=== PATIENT | female | born 1930 | race Hispanic/Latino ===

== ENCOUNTER 2018-02-05 18:56 | Inpatient (IN) | payer MEDICARE ==
[2018-02-05 19:06] VITALS: O2SAT 96
--- NOTE | 2018-02-05 19:43 | ED PDOC ---
HPI: Psych/Substance Abuse Time Seen by Provider: 02/05/18 19:40 Chief Complaint (Nursing): Psychiatric Evaluation Chief Complaint (Provider): PSYCH EVAL History Per: Family (87 Y/O FEMALE H/O DEMENTIA BROUGHT TO ED BY NIECE FOR EVALUATION OF PARANOIA/VISUAL HALLUCINATIONS. NO FEVERS/CHILLS/ETC. NOTED TO COMPLAIN OF RIGHT LEG PAIN ONGOING X FEW DAYS. NIECE CONCERNED PATIENT HAS TRIED TO LEAVE HOUSE DUE TO BEING UPSET ABOUT PEOPLE TALKING ABOUT HER AND WORRIED ABOUT OTHERS USING GUNS ON HER.) Past Medical History Reviewed: Historical Data, Nursing Documentation, Vital Signs Vital Signs: Last Vital Signs Temp 98.1 F 02/05/18 19:02 Pulse 81 02/05/18 19:02 Resp 16 02/05/18 19:02 BP 210/63 H 02/05/18 19:02 Pulse Ox 96 02/05/18 19:02 - Medical History Other PMH: PMD: DR. CHUA - Family History Family History: States: No Known Family Hx - Allergies Allergies/Adverse Reactions: Allergies Allergy/AdvReac Type Severity Reaction Status Date / Time No Known Allergies Allergy Verified 02/05/18 19:06 Review of Systems ROS Statement: Except As Marked, All Systems Reviewed And Found Negative Physical Exam - Reviewed Nursing Documentation Reviewed: Yes Vital Signs Reviewed: Yes - Physical Exam Appears: Positive for: Well, Non-toxic, No Acute Distress Head Exam: Positive for: ATRAUMATIC, NORMAL INSPECTION, NORMOCEPHALIC Skin: Positive for: Normal Color, Warm, DRY Eye Exam: Positive for: EOMI, Normal appearance, PERRL ENT: Positive for: Normal ENT Inspection Neck: Positive for: Normal, Painless ROM Cardiovascular/Chest: Positive for: Regular Rate, Rhythm Respiratory: Positive for: CNT, Normal Breath Sounds Gastrointestinal/Abdominal: Positive for: Normal Exam, Bowel Sounds, Soft Back: Positive for: Normal Inspection Extremity: Positive for: Normal ROM, Other (MINIMAL SCIATIC RAISE NOTED. PATIENT DESCRIBES PAIN BEHIND CALF AND THIGH) Neurologic/Psych: Positive for: Alert, Oriented - ECG O2 Sat by Pulse Oximetry: 96 Disposition - Clinical Impression Clinical Impression: Paranoia, Leg pain - Patient ED Disposition Is Patient to be Admitted: Transfer of Care - Disposition Disposition: Transfer of Care Disposition Time: 20:00 Condition: FAIR Patient Signed Over To: Priti Long Handoff Comments: LABWORK/HEAD CT/UA/CRISIS EVAL
--- NOTE | 2018-02-05 21:01 | ED PDOC ---
- Laboratory Results Result Diagrams: 02/05/18 21:36 02/05/18 21:36 - ECG O2 Sat by Pulse Oximetry: 96 (RA) Pulse Ox Interpretation: Normal Medical Decision Making Medical Decision Makin Case endorsed to tag writerToshia PA-C, due to shift change. Patient pending lab results, CT and U/S results, and further disposition. Pertinent details reviewed. 2054 Per CRISIS evaluation, patient is to be admitted with diagnosis of unspecified dementia with behavioral disturbances per Dr Tello. Patient pending medical clearance and lab/CT/US results. 2119 EKG reviewed: SR @ 89bpm (-) ST elevation, normal axis CT head reviewed, radiology report follows EXAM: CT Head Without Intravenous Contrast CLINICAL HISTORY: 87 years old, female; Signs and symptoms; Other: Psych eval; Additional info: Hallucinations TECHNIQUE: Axial computed tomography images of the head/brain without intravenous contrast. All CT scans at this facility use one or more dose reduction techniques, viz.: automated exposure control; ma/kV adjustment per patient size (including targeted exams where dose is matched to indication; i.e. head); or iterative reconstruction technique. Coronal and sagittal reformatted images were created and reviewed. COMPARISON: No relevant prior studies available. FINDINGS: Brain: Atrophy. Bilateral white matter hypoattenuation most consistent with chronic ischemic small vessel changes. Intracranial vascular calcification. No hemorrhage. No significant white matter disease. No edema. Ventricles: No hydrocephalus. Bones: Skull is intact. Sinuses: Minimal paranasal sinus mucosal thickening. No acute sinusitis. Mastoid air cells: No mastoid effusion. IMPRESSION: No CT evidence of acute intracranial abnormality. Please see details/findings as above. Thank you for allowing us to participate in the care of your patient. Dictated and Authenticated by: Cathy Davis MD 02/05/2018 9:00 PM Eastern Time ([place] & [place]) 2129 Patient pending lab results. U/S reviewed, radiology report follows EXAM: US Duplex Bilateral Lower Extremity Veins CLINICAL HISTORY: 87 years old, female; Pain; Leg, lower; Bilateral; Additional info: R/O dvt TECHNIQUE: Real-time duplex ultrasound scan of the bilateral lower extremity veins integrating B-mode twodimensional vascular structure, Doppler spectral analysis, color flow Doppler imaging and compression. COMPARISON: No relevant prior studies available. FINDINGS: Right deep veins: No DVT in the right common femoral, femoral, proximal deep femoral, popliteal or posterior tibial veins. The veins demonstrate normal color flow, are normally compressible, with normal phasic flow and/or augmentation response. Left deep veins: No DVT in the left common femoral, femoral, proximal deep femoral, popliteal or posterior tibial veins. The veins demonstrate normal color flow, are normally compressible, with normal phasic flow and/or augmentation response. Soft tissues: 2.7 x 1.7 x 1.3 cm focus of fluid in the right popliteal fossa, likely Bakers cyst. IMPRESSION: No evidence of deep venous thrombosis in the visualized veins of the bilateral lower extremities. 2.7 x 1.7 x 1.3 cm focus of fluid in the right popliteal fossa, likely Bakers cyst. Spoke with Lianne fibre technologist on 02/05/2018 9:23 PM EDT. Thank you for allowing us to participate in the care of your patient. Dictated and Authenticated by: Cathy Davis MD 02/05/2018 9:23 PM Eastern Time ([place] & [place]) 2245 Repeat BP: 188/67. Patient continues to deny any complaints related to elevated BP in ED including but not limited to headache, chest pain, palpitations, visual changes, weakness. On exam, patient remains AAOx3, in no acute distress. Lungs clear to auscultation, cardiac RRR, abdomen soft, non-tender, repeat neuro exam shows no focal findings. Labs reviewed, patient is medically stable for psychiatric admission. Arrangements made for admission. 2357 Repeat BP: 132/74 Repeat HR: 84 Disposition - Clinical Impression Clinical Impression: Paranoia, Leg pain, Dementia, unspecified, with behavioral disturbance - POA Present On Arrival: None - Disposition Disposition: Admitted as In-Patient Disposition Time: 01:50 Condition: FAIR Results - Lab Results Lab Results: 02/05/18 02/05/18 02/05/18 21:36 21:36 21:36 WBC 2.9 L RBC 3.33 L Hgb 11.3 L Hct 33.5 L MCV 100.4 H MCH 33.9 H MCHC 33.8 RDW 14.4 Plt Count 272 MPV 8.4 Neut % (Auto) 48.8 L Lymph % (Auto) 34.3 [place] % (Auto) 11.7 H Eos % (Auto) 2.4 Baso % (Auto) 2.8 H Neut # (Auto) 1.4 L Lymph # (Auto) 1.0 [place] # (Auto) 0.3 Eos # (Auto) 0.1 Baso # (Auto) 0.1 Sodium 142 Potassium 4.3 Chloride 103 Carbon Dioxide 26 Anion Gap 17 BUN 26 H Creatinine 0.8 Est GFR ( Amer) > 60 Est GFR (Non-Af Amer) > 60 Random Glucose 119 H Calcium 9.3 Total Bilirubin 0.3 AST 26 ALT 25 Alkaline Phosphatase 81 Troponin I 0.0320 Total Protein 6.8 Albumin 4.0 Globulin 2.8 Albumin/Globulin Ratio 1.4 Urine Color Yellow Urine Clarity Slighty-cloudy Urine pH 6.0 Ur Specific [place] 1.019 Urine Protein 100 Urine Glucose (UA) Neg Urine Ketones Negative Urine Blood Negative Urine Nitrate Negative Urine Bilirubin Negative Urine Urobilinogen 0.2-1.0 Ur Leukocyte Esterase Neg Urine RBC (Auto) 1 Urine Microscopic WBC 2 Ur Squamous Epith Cells 1 Urine Bacteria Rare
--- NOTE | 2018-02-05 21:24 | US ---
EXAM: US Duplex Bilateral Lower Extremity Veins CLINICAL HISTORY: 87 years old, female; Pain; Leg, lower; Bilateral; Additional info: R/O dvt TECHNIQUE: Real-time duplex ultrasound scan of the bilateral lower extremity veins integrating B-mode two-dimensional vascular structure, Doppler spectral analysis, color flow Doppler imaging and compression. COMPARISON: No relevant prior studies available. FINDINGS: Right deep veins: No DVT in the right common femoral, femoral, proximal deep femoral, popliteal or posterior tibial veins. The veins demonstrate normal color flow, are normally compressible, with normal phasic flow and/or augmentation response. Left deep veins: No DVT in the left common femoral, femoral, proximal deep femoral, popliteal or posterior tibial veins. The veins demonstrate normal color flow, are normally compressible, with normal phasic flow and/or augmentation response. Soft tissues: 2.7 x 1.7 x 1.3 cm focus of fluid in the right popliteal fossa, likely Bakers cyst. IMPRESSION: No evidence of deep venous thrombosis in the visualized veins of the bilateral lower extremities. 2.7 x 1.7 x 1.3 cm focus of fluid in the right popliteal fossa, likely Bakers cyst. Spoke with Lianne vascular ultrasound technologist on 02/05/2018 9:23 PM EDT.
[2018-02-05 21:49] LABS: SQUAMOUS EPITHIAL 1 /hpf (0-5); URINE BACTERIA RARE (<OCC); URINE BILIRUBIN NEGATIVE (NEGATIVE); URINE BLOOD NEGATIVE (NEGATIVE); URINE CLARITY SLIGHTY-CLOUDY (Clear); URINE COLOR YELLOW (YELLOW); URINE GLUCOSE (UA) NEG (Normal); URINE LEUKOCYTE ESTERASE NEG Leu/uL (Negative); URINE PROTEIN 100 mg/dL (NEGATIVE); URINE UROBILINOGEN 0.2-1.0 mg/dL (0.2-1.0)
[2018-02-05 22:05] LABS: ALB/GLOB RATIO 1.4 (1.0-2.1); ALT/SGPT 25 U/L (9-52); AST/SGOT 26 U/L (14-36); BLOOD UREA NITROGEN 26 mg/dl (7-17); CALCIUM 9.3 mg/dL (8.4-10.2); GFR AFRICAN-AMERICAN > 60; GFR NON-AFRICAN AMERICAN > 60
[2018-02-05 22:33] LABS: BASO # 0.1 K/uL (0.0-0.2); BASO % 2.8 % (0.0-2.0); EOS # 0.1 K/uL (0.0-0.7); EOS % 2.4 % (0.0-4.0); HEMOGLOBIN 11.3 g/dL (12.0-16.0); LYMPH % 34.3 % (20.0-40.0); MEAN CELL VOLUME 100.4 fl (81.0-99.0); MEAN CORPUSCULAR HEMOGLOBIN 33.9 pg (27.0-31.0); MEAN CORPUSCULAR HGB CONC 33.8 g/dL (33.0-37.0); MEAN PLATELET VOLUME 8.4 fl (7.2-11.7); MONO # 0.3 K/uL (0.0-0.8); MONO % 11.7 % (0.0-10.0); NEUT # 1.4 K/uL (1.8-7.0); NEUT % 48.8 % (50.0-75.0); NRBC % 0.2 % (0.0-0.0); RBC 3.33 Mil/uL (3.80-5.20); RED CELL DISTRIBUTION WIDTH 14.4 % (11.5-14.5); WHITE BLOOD COUNT 2.9 K/uL (4.8-10.8)
[2018-02-06] MEDS ORDERED: Magnesium Hydroxide Susp 30 ml UD PO PRN (01:55)
[2018-02-06] MEDS ORDERED: Bismuth Subsalicylate 262 mg/15 ml Sus (240 ml) PO PRN (01:55)
[2018-02-06] MEDS ORDERED: Alum-Mag Hydrox-Simethicone Susp (30 mL) PO PRN (01:55)
--- NOTE | 2018-02-06 02:24 | PCM.BM ---
<Amanda Villanueva - Last Filed: 02/06/18 02:22> Treatment Plan Problems - Problems identified on initial assessmt Psychosis Date Initiated: 02/06/18 Time Initiated: 02:22 Assessment reference: NA Status: Active Treatment assets and liabiliti Patient Assests: cooperative, good support system, negotiates basic needs Patient Liabilities: imparied memory - Milieu Protocol Maintain good personal hygiene: daily Encourage regular showers, daily Remind patient to perform daily oral care, other Assist patient to perform ADL's (prn) Maintain personal safety: every shift Educate patient to report safety concerns to staff, every shift Monitor environment for contraband/sharps Medication safety: Monitor for expected outcome, potential side effects: every shift, Assess barriers to learning: every shift, Assess readiness for medication education: every shift <Brenda Stroud - Last Filed: 02/06/18 08:43> - Diagnosis (1) Dementia, unspecified, with behavioral disturbance Status: Acute Interventions: Psychoeducation, Medication Management, Individual and group therapy 02/06/18 08:43 <Pearl Urbina - Last Filed: 02/06/18 13:24> Family Contact Family involvement: Family/SO is involved Family contact: Patient agrees to contact, Family has been contacted by patient , Telephone contact initiated by staff, Family contacted unit to give information Family contact name: Norberto phan Family contacted how many times per week?: 2 Family contact comment: [phone]. Please refer to SW progress note dated for information - Goals for Treatment Patient goals for treatment: Pt to be encouraged to attend activity and clinical groups 3-5x per week to decrease symptoms of paranoia, delusions and employ reality testing. Pt to be encouraged to participate in group milieu to develop coping skills to reduce psychiatric hospitalizations and further decompensation. Coordinate discharge resources needs by providing referral for psychiatric treatment follow up in the community. Discharge/Continuing Care - Education Needs Education Needs: Family Medication, Family Diagnosis/Disease Process, Family Coping Skills, Family Placement options, Family Community resources, Family Activities of Daily Living, Family Uses of Medical Equipment, Family Health Practices/Safety, Family Personal Hygiene/Grooming, Family Aftercare Safety Plan - Discharge Discharge Criteria: Tolerates medication w/o severe side effects, Free of paranoid thoughts, Free of agitation, Normal sleep pattern, Ability to care for self, Reduction of target symptoms Discharge to:: Home, With Family - Additional Comments 02/06/18 13:23 Pt seen and discussed in team meeting. Reason for admission reviewed and discussed. Pt's social and medical issues reviewed. Pt's medications reviewed. tx plan reviewed. SW to follow up with family for collateral information. Pt unable to provide any information due to cognitive impairment. - Treatment Team Participation Discussed with Family/SO: No Was Patient/Family/SO present at Treatment Team Meeting: Yes
[2018-02-06 06:40] LABS: IRON 86 ug/dL (37-170)
[2018-02-06 06:42] LABS: HDL CHOLESTEROL 54 MG/DL (30-70)
[2018-02-06 06:44] LABS: HEMOGLOBIN 11.2 g/dL (12.0-16.0); MEAN CORPUSCULAR HEMOGLOBIN 34.6 pg (27.0-31.0); MEAN CORPUSCULAR HGB CONC 34.6 g/dL (33.0-37.0); RBC 3.25 Mil/uL (3.80-5.20); RED CELL DISTRIBUTION WIDTH 14.2 % (11.5-14.5); WHITE BLOOD COUNT 2.6 K/uL (4.8-10.8)
[2018-02-06 06:53] LABS: % IRON SATURATION 33 % (20-55); TOTAL IRON BINDING CAPACITY 264 ug/dL (250-450)
[2018-02-06 06:54] LABS: LDL CHOLESTEROL 120 mg/dL (0-129)
[2018-02-06 07:00] LABS: T4 8.75 ug/dl (5.5-11.0)
--- NOTE | 2018-02-06 08:54 | PCM.PSYCH ---
Initial Psychiatric Evaluation - Initial Psychiatric Evaluation Chief Complaint (in patient's own words): "I'm okay." Patient's Reaction to Hospitalization: HPI: 87 yo female w/ h/o dementia, brought into [facility] ED by niece, due to worsening bizarre behavior and paranoia. Patient is unable to give any history. She is A + O x 1. She denies mood disturbance, AH/VH/SI/HI. She has poor insight into the severity of her dementia. She reports good appetite and sleep. She is not able to care for herself due to her chronic dementia. PMHx: HTN, Glaucoma SHx: Lives w/ her niece, no drugs/etoh/drugs, unemployed. ALL: NKDA Current Medications: Active Medications Generic Name Dose Route Start Last Admin Trade Name Freq PRN Reason Stop Dose Admin Acetaminophen 650 mg 02/06/18 01:55 Tylenol 325mg Tab PO Q4 PRN Pain, moderate (4-7) Al Hydrox/Mg Hydrox/Simethicone 30 ml 02/06/18 01:55 Maalox Plus 30 Ml PO Q4 PRN Dyspepsia Bismuth Subsalicylate 524 mg 02/06/18 01:55 Pepto-Bismol PO Q4 PRN Diarrhea Lorazepam 0.5 mg 02/06/18 01:55 Ativan PO 02/20/18 01:56 HS PRN Insomnia Lorazepam 0.5 mg 02/06/18 01:55 Ativan PO 02/20/18 01:56 Q6 PRN Anixety/Agitation Magnesium Hydroxide 30 ml 02/06/18 01:55 Milk Of Magnesia PO HS PRN Constipation Memantine 10 mg 02/06/18 09:00 Namenda PO DAILY LUCERO Past Psychiatric History - Past Psychiatric History Pertinent Medical Hx (Current Medical&Sleep Prob, Allergies): Allergies Allergy/AdvReac Type Severity Reaction Status Date / Time No Known Allergies Allergy Verified 02/05/18 19:06 Memantine [Namenda] 10 mg PO DAILY 02/06/18 Sertraline [Zoloft] 50 mg PO DAILY 02/06/18 Timolol 0.25% Ophth [Timoptic 0.25% Ophth Soln] 1 drop OU BID 02/06/18 amLODIPine [Norvasc] 2.5 mg PO DAILY 02/06/18 Review of Systems - Psychiatric Psychiatric: As Per HPI, Behavioral Changes, Memory Loss Mental Status Examination - Personal Presentation Personal Presentation: Looks stated age - Affect Affect: Broad - Motor Activity Motor Activity: Calm - Reliability in Providing Information Reliability in Providing Information: Poor, due to cognitve impairment - Speech Speech: Disorganized, Irrelevant - Mood Mood: Neutral - Formal Thought Process Formal Thought Process: Loosening of associations - Hallucinations/Delusions Additional comments: Denies AH/VH/paranoia/delusions - Obsessions/Compulsions Obsessions: No Compulsions: No - Cognitive Functions Orientation: Person Sensorium: Alert Attention/Concentration: Easily distracted Estimate of Intelligence: Average Judgement: Imparied, as evidence by: Poor judgement, Imparied, as evidence by: Lack of insight into illness Memory: Recent impaired, as evidence by: Inability to recall events of the day, Recent imparied as evidence by:Inability to complete 3/3 object recall, Remote impaired as evidenced by: Inability to recall sig life events, Remote impaired as evidenced by: Inability to recall historical events - Risk Risk: Diminished functioning - Strength & Assets Inventory Strength & Assets Inventory: Family support - Limitations Limitations: Decreased memory, recent DSM 5 DX - DSM 5 DSM 5 Diagnosis: Dementia with behavioral disturbances - Recommended/Plan of Treatment Treatment Recommendations and Plan of Treatment: Dementia with behavioral disturbances -Admit to geriatric psychiatry unit -Obtain collateral history -Medicine consult -Individual and group therapy -Stop Zoloft, patient is not exhibiting any mood disturbances -Increase Namenda -Start Seroquel -Psychology consult -Disposition planning Projected ELOS: 4-7 days Discharge Plan and Discharge Criteria: Discharge when patient is psychiatrically stable - Smoking Cessation Smoking Cessation Initiated: No Reason for not providing: Not indicated
--- NOTE | 2018-02-06 11:28 | CP.PCM.CON ---
History of Present Illness - History of Present Illness History of Present Illness: Pt is an 87 year old female admitted to [facility] and referred to the communications writer for evaluation. On the DRS, pt scored an overall score of 90>. Pt scored in the Deficient Range on all tasks. Pt scored in the Deficient Range on Attention , Construction, Memory, Initiation, and Conceptualization measures. Pt's verbal processing and organization were very impaired on evaluation. Overall 90 Attention 22 Construction 3 Memory 10 Conceptualization 29 Initiation 21 Significant cognitive deficits evident. Past Patient History - Past Social History Smoking Status: Never Smoked - CARDIAC Hx Cardiac Disorders: Yes Hx Hypertension: Yes - NEUROLOGICAL HX Cerebrovascular Accident: No Hx Dementia: Yes Hx Seizures: No - HEMATOLOGICAL/ONCOLOGICAL Hx Cancer: No Hx Human Immunodeficiency Virus (HIV): No - MUSCULOSKELETAL/RHEUMATOLOGICAL Hx Falls: Yes Hx Unsteady Gait: Yes - GENITOURINARY/GYNECOLOGICAL Hx Sexually Transmitted Disorders: No - PSYCHIATRIC Hx Substance Use: No - SURGICAL HISTORY Hx Hysterectomy: Yes - ANESTHESIA Hx Anesthesia: No Meds Allergies/Adverse Reactions: Allergies Allergy/AdvReac Type Severity Reaction Status Date / Time No Known Allergies Allergy Verified 02/05/18 19:06 - Medications Medications: Current Medications Acetaminophen (Tylenol 325mg Tab) 650 mg PO Q4 PRN PRN Reason: Pain, moderate (4-7) Al Hydrox/Mg Hydrox/Simethicone (Maalox Plus 30 Ml) 30 ml PO Q4 PRN PRN Reason: Dyspepsia Bismuth Subsalicylate (Pepto-Bismol) 524 mg PO Q4 PRN PRN Reason: Diarrhea Lorazepam (Ativan) 0.5 mg PO HS PRN PRN Reason: Insomnia Stop: 02/20/18 01:56 Lorazepam (Ativan) 0.5 mg PO Q6 PRN PRN Reason: Anixety/Agitation Stop: 02/20/18 01:56 Magnesium Hydroxide (Milk Of Magnesia) 30 ml PO HS PRN PRN Reason: Constipation Memantine (Namenda) 10 mg PO DAILY LUCERO Last Admin: 02/06/18 10:50 Dose: 10 mg Results - Vital Signs Recent Vital Signs: Last Vital Signs Temp 97.6 F 02/06/18 06:00 Pulse 82 02/06/18 06:00 Resp 18 02/06/18 06:00 BP 149/57 L 02/06/18 06:00 Pulse Ox 96 03/30/18 02:17 - Labs Result Diagrams: 02/06/18 06:23 02/05/18 21:36 Labs: Laboratory Results - last 24 hr 02/05/18 02/05/18 02/05/18 21:36 21:36 21:36 WBC 2.9 L RBC 3.33 L Hgb 11.3 L Hct 33.5 L MCV 100.4 H MCH 33.9 H MCHC 33.8 RDW 14.4 Plt Count 272 MPV 8.4 Neut % (Auto) 48.8 L Lymph % (Auto) 34.3 [place] % (Auto) 11.7 H Eos % (Auto) 2.4 Baso % (Auto) 2.8 H Neut # (Auto) 1.4 L Lymph # (Auto) 1.0 [place] # (Auto) 0.3 Eos # (Auto) 0.1 Baso # (Auto) 0.1 Sodium 142 Potassium 4.3 Chloride 103 Carbon Dioxide 26 Anion Gap 17 BUN 26 H Creatinine 0.8 Est GFR ( Amer) > 60 Est GFR (Non-Af Amer) > 60 Random Glucose 119 H Calcium 9.3 Iron TIBC % Saturation Ferritin Total Bilirubin 0.3 AST 26 ALT 25 Alkaline Phosphatase 81 Troponin I 0.0320 Total Protein 6.8 Albumin 4.0 Globulin 2.8 Albumin/Globulin Ratio 1.4 Triglycerides Cholesterol LDL Cholesterol Direct HDL Cholesterol Vitamin B12 Free T4 Thyroxine (T4) TSH 3rd Generation Urine Color Yellow Urine Clarity Slighty-cloudy Urine pH 6.0 Ur Specific [place] 1.019 Urine Protein 100 Urine Glucose (UA) Neg Urine Ketones Negative Urine Blood Negative Urine Nitrate Negative Urine Bilirubin Negative Urine Urobilinogen 0.2-1.0 Ur Leukocyte Esterase Neg Urine RBC (Auto) 1 Urine Microscopic WBC 2 Ur Squamous Epith Cells 1 Urine Bacteria Rare 02/06/18 02/06/18 02/06/18 06:23 06:23 06:23 WBC RBC Hgb Hct MCV MCH MCHC RDW Plt Count MPV Neut % (Auto) Lymph % (Auto) [place] % (Auto) Eos % (Auto) Baso % (Auto) Neut # (Auto) Lymph # (Auto) [place] # (Auto) Eos # (Auto) Baso # (Auto) Sodium Potassium Chloride Carbon Dioxide Anion Gap BUN Creatinine Est GFR ( Amer) Est GFR (Non-Af Amer) Random Glucose Calcium Iron 86 TIBC 264 % Saturation 33 Ferritin 645.0 H Total Bilirubin AST ALT Alkaline Phosphatase Troponin I Total Protein Albumin Globulin Albumin/Globulin Ratio Triglycerides 51 Cholesterol 190 LDL Cholesterol Direct 120 HDL Cholesterol 54 Vitamin B12 469 Free T4 1.13 Thyroxine (T4) 8.75 TSH 3rd Generation 0.67 Urine Color Urine Clarity Urine pH Ur Specific [place] Urine Protein Urine Glucose (UA) Urine Ketones Urine Blood Urine Nitrate Urine Bilirubin Urine Urobilinogen Ur Leukocyte Esterase Urine RBC (Auto) Urine Microscopic WBC Ur Squamous Epith Cells Urine Bacteria 02/06/18 06:23 WBC 2.6 L RBC 3.25 L Hgb 11.2 L Hct 32.5 L MCV 100.0 H MCH 34.6 H MCHC 34.6 RDW 14.2 Plt Count 257 MPV Neut % (Auto) Lymph % (Auto) [place] % (Auto) Eos % (Auto) Baso % (Auto) Neut # (Auto) Lymph # (Auto) [place] # (Auto) Eos # (Auto) Baso # (Auto) Sodium Potassium Chloride Carbon Dioxide Anion Gap BUN Creatinine Est GFR ( Amer) Est GFR (Non-Af Amer) Random Glucose Calcium Iron TIBC % Saturation Ferritin Total Bilirubin AST ALT Alkaline Phosphatase Troponin I Total Protein Albumin Globulin Albumin/Globulin Ratio Triglycerides Cholesterol LDL Cholesterol Direct HDL Cholesterol Vitamin B12 Free T4 Thyroxine (T4) TSH 3rd Generation Urine Color Urine Clarity Urine pH Ur Specific [place] Urine Protein Urine Glucose (UA) Urine Ketones Urine Blood Urine Nitrate Urine Bilirubin Urine Urobilinogen Ur Leukocyte Esterase Urine RBC (Auto) Urine Microscopic WBC Ur Squamous Epith Cells Urine Bacteria
--- NOTE | 2018-02-06 12:36 | CP.PCM.CON ---
History of Present Illness - History of Present Illness History of Present Illness: Reason for Consult: Per hospital protocol HPI: 87 year old female with a past medical history of severe dementia, hypertension, glaucoma, admitted to geropsychiatric for worsening bizarre behavior and paranoia. Patient is a poor historian, unable to elicit any history. Does not appear to be in any acute distress, hemodynamically stable. ROS: Per HPI, all other systems reviewed and neg Past Patient History - Past Social History Smoking Status: Never Smoked - CARDIAC Hx Cardiac Disorders: Yes Hx Hypertension: Yes - NEUROLOGICAL HX Cerebrovascular Accident: No Hx Dementia: Yes Hx Seizures: No - HEMATOLOGICAL/ONCOLOGICAL Hx Cancer: No Hx Human Immunodeficiency Virus (HIV): No - MUSCULOSKELETAL/RHEUMATOLOGICAL Hx Falls: Yes Hx Unsteady Gait: Yes - GENITOURINARY/GYNECOLOGICAL Hx Sexually Transmitted Disorders: No - PSYCHIATRIC Hx Substance Use: No - SURGICAL HISTORY Hx Hysterectomy: Yes - ANESTHESIA Hx Anesthesia: No Meds Allergies/Adverse Reactions: Allergies Allergy/AdvReac Type Severity Reaction Status Date / Time No Known Allergies Allergy Verified 02/05/18 19:06 - Medications Medications: Current Medications Acetaminophen (Tylenol 325mg Tab) 650 mg PO Q4 PRN PRN Reason: Pain, moderate (4-7) Al Hydrox/Mg Hydrox/Simethicone (Maalox Plus 30 Ml) 30 ml PO Q4 PRN PRN Reason: Dyspepsia Bismuth Subsalicylate (Pepto-Bismol) 524 mg PO Q4 PRN PRN Reason: Diarrhea Lorazepam (Ativan) 0.5 mg PO HS PRN PRN Reason: Insomnia Stop: 02/20/18 01:56 Lorazepam (Ativan) 0.5 mg PO Q6 PRN PRN Reason: Anixety/Agitation Stop: 02/20/18 01:56 Magnesium Hydroxide (Milk Of Magnesia) 30 ml PO HS PRN PRN Reason: Constipation Memantine (Namenda) 10 mg PO BID LUCERO Quetiapine Fumarate (Seroquel) 25 mg PO Q12 LUCERO Physical Exam - Constitutional Additional comments: Vitals Reviewed GEN: awake, alert, HEENT: NCAT, PERRL, EOMI HEART: RRR, +S1S2, NO MRG LUNG: CTAB, NO WRR ABD: soft, NT, ND, No HSM, No masses EXT: normal pedal pulses, normal capillary refill NEURO: awake, alert, no focal deficits SKIN: warm, dry Results - Vital Signs Recent Vital Signs: Last Vital Signs Temp 97.6 F 02/06/18 06:00 Pulse 82 02/06/18 06:00 Resp 18 02/06/18 06:00 BP 149/57 L 02/06/18 06:00 Pulse Ox 96 02/06/18 02:17 - Labs Result Diagrams: 02/06/18 06:23 02/05/18 21:36 Labs: Laboratory Results - last 24 hr 02/05/18 02/05/18 02/05/18 21:36 21:36 21:36 WBC 2.9 L RBC 3.33 L Hgb 11.3 L Hct 33.5 L MCV 100.4 H MCH 33.9 H MCHC 33.8 RDW 14.4 Plt Count 272 MPV 8.4 Neut % (Auto) 48.8 L Lymph % (Auto) 34.3 [place] % (Auto) 11.7 H Eos % (Auto) 2.4 Baso % (Auto) 2.8 H Neut # (Auto) 1.4 L Lymph # (Auto) 1.0 [place] # (Auto) 0.3 Eos # (Auto) 0.1 Baso # (Auto) 0.1 Sodium 142 Potassium 4.3 Chloride 103 Carbon Dioxide 26 Anion Gap 17 BUN 26 H Creatinine 0.8 Est GFR ( Amer) > 60 Est GFR (Non-Af Amer) > 60 Random Glucose 119 H Hemoglobin A1c Calcium 9.3 Iron TIBC % Saturation Ferritin Total Bilirubin 0.3 AST 26 ALT 25 Alkaline Phosphatase 81 Troponin I 0.0320 Total Protein 6.8 Albumin 4.0 Globulin 2.8 Albumin/Globulin Ratio 1.4 Triglycerides Cholesterol LDL Cholesterol Direct HDL Cholesterol Vitamin B12 Free T4 Thyroxine (T4) TSH 3rd Generation Urine Color Yellow Urine Clarity Slighty-cloudy Urine pH 6.0 Ur Specific Range 1.019 Urine Protein 100 Urine Glucose (UA) Neg Urine Ketones Negative Urine Blood Negative Urine Nitrate Negative Urine Bilirubin Negative Urine Urobilinogen 0.2-1.0 Ur Leukocyte Esterase Neg Urine RBC (Auto) 1 Urine Microscopic WBC 2 Ur Squamous Epith Cells 1 Urine Bacteria Rare 02/06/18 02/06/18 02/06/18 06:23 06:23 06:23 WBC RBC Hgb Hct MCV MCH MCHC RDW Plt Count MPV Neut % (Auto) Lymph % (Auto) [place] % (Auto) Eos % (Auto) Baso % (Auto) Neut # (Auto) Lymph # (Auto) [place] # (Auto) Eos # (Auto) Baso # (Auto) Sodium Potassium Chloride Carbon Dioxide Anion Gap BUN Creatinine Est GFR ( Amer) Est GFR (Non-Af Amer) Random Glucose Hemoglobin A1c 5.3 Calcium Iron 86 TIBC 264 % Saturation 33 Ferritin 645.0 H Total Bilirubin AST ALT Alkaline Phosphatase Troponin I Total Protein Albumin Globulin Albumin/Globulin Ratio Triglycerides 51 Cholesterol 190 LDL Cholesterol Direct 120 HDL Cholesterol 54 Vitamin B12 469 Free T4 Thyroxine (T4) 8.75 TSH 3rd Generation 0.67 Urine Color Urine Clarity Urine pH Ur Specific Range Urine Protein Urine Glucose (UA) Urine Ketones Urine Blood Urine Nitrate Urine Bilirubin Urine Urobilinogen Ur Leukocyte Esterase Urine RBC (Auto) Urine Microscopic WBC Ur Squamous Epith Cells Urine Bacteria 02/06/18 02/06/18 06:23 06:23 WBC 2.6 L RBC 3.25 L Hgb 11.2 L Hct 32.5 L MCV 100.0 H MCH 34.6 H MCHC 34.6 RDW 14.2 Plt Count 257 MPV Neut % (Auto) Lymph % (Auto) [place] % (Auto) Eos % (Auto) Baso % (Auto) Neut # (Auto) Lymph # (Auto) [place] # (Auto) Eos # (Auto) Baso # (Auto) Sodium Potassium Chloride Carbon Dioxide Anion Gap BUN Creatinine Est GFR ( Amer) Est GFR (Non-Af Amer) Random Glucose Hemoglobin A1c Calcium Iron TIBC % Saturation Ferritin Total Bilirubin AST ALT Alkaline Phosphatase Troponin I Total Protein Albumin Globulin Albumin/Globulin Ratio Triglycerides Cholesterol LDL Cholesterol Direct HDL Cholesterol Vitamin B12 Free T4 1.13 Thyroxine (T4) TSH 3rd Generation Urine Color Urine Clarity Urine pH Ur Specific Range Urine Protein Urine Glucose (UA) Urine Ketones Urine Blood Urine Nitrate Urine Bilirubin Urine Urobilinogen Ur Leukocyte Esterase Urine RBC (Auto) Urine Microscopic WBC Ur Squamous Epith Cells Urine Bacteria Assessment & Plan - Assessment and Plan (Free Text) Plan: 87 year old female with a past medical history of severe dementia, hypertension , glaucoma, admitted to ger[facility]ychiatric for worsening bizarre behavior and paranoia. Patient is a poor historian, unable to elicit any history. Does not appear to be in any acute distress, hemodynamically stable. Hypertension Continue Norvasc Glaucoma Continue drops Dementia Continue Namenda Paranoia and bizarre behavior Management per psychiatry
[2018-02-06 12:51] LABS: FOLATE > 20.0 ng/mL
--- NOTE | 2018-02-06 20:30 | CARD ---
APPROVED REPORT EKG Measurement Heart [id number] <Conclusion> Sinus rhythm with premature supraventricular complexes Minimal voltage criteria for LVH, may be normal variant Possible Anterior infarct, age undetermined Abnormal ECG
[2018-02-07] MEDS: Timolol 0.25% Ophth SOLN OU SCH ×2 (08:20→17:08)
--- NOTE | 2018-02-07 15:32 | PCM.PYCHPN ---
Psychiatric Progress Note - Psychiatric Progress Note Patient seen today, length of contact: chart reviewed case discussed with team Patient Chief Complaint: is unable to state where she is does not know why she is in hospital Problems Identified/Issues Discussed: alteration in cognition alteration behavior alteration in self care Medical Problems: per chart Diagnostic Results: per psychiatry per medicine per nursing per clinical social work therapist per consults DSM 5 Symptoms Update: confusion alteration in cognition Medication Change: No Medical Record Reviewed: Yes Consults ordered or reviewed: per consult Mental Status Examination - Cognitive Function Orientation: Person Memory: Impaired Attention: Poor Concentration: Poor Association: Loose Fund of Knowledge: Poor Decription of patient's judgement and insights: poor - Mood Mood: Neutral - Affect Affect: Broad - Formal Thought Process Formal Thought Process: Loosening of associations - Homicidal Ideation Homicidal Ideation: No Goal/Treatment Plan - Goal/Treatment Plan Progress Toward Problem(s) and Goals/Treatment Plan: inpt milieu vital signs and clinical observation per protocol and per clinical status pt being followed by hospitalist falls precaution skin precautions hob with po intake adjust meds per status discharge planning in progress Estimated Date of D/C: 02/11/18 If changed, why: pt defers
[2018-02-08] MEDS: Timolol 0.25% Ophth SOLN OU SCH ×2 (08:26→16:10)
--- NOTE | 2018-02-08 15:10 | PCM.PYCHPN ---
Psychiatric Progress Note - Psychiatric Progress Note Patient seen today, length of contact: chart reviewed case discussed with team Patient Chief Complaint: is unable to state where she is does not know why she is in hospital, now understanding why she is in hospital and why she is not in her old room (not room change was noted ), staff report pt has been adherent with rx Problems Identified/Issues Discussed: alteration in cognition alteration behavior alteration in self care Medical Problems: per chart Diagnostic Results: per psychiatry per medicine per nursing per psych social worker per consults DSM 5 Symptoms Update: alteration in cognition and self care Medication Change: No Medical Record Reviewed: Yes Consults ordered or reviewed: pt seen by hospitalist Mental Status Examination - Cognitive Function Orientation: Person Memory: Impaired Attention: Poor Concentration: Poor Association: Loose Fund of Knowledge: Poor Decription of patient's judgement and insights: poor - Mood Mood: Neutral - Affect Affect: Broad - Speech Speech: Soft - Formal Thought Process Formal Thought Process: Loosening of associations - Homicidal Ideation Homicidal Ideation: No Goal/Treatment Plan - Goal/Treatment Plan Progress Toward Problem(s) and Goals/Treatment Plan: inpt milieu vital signs and clinical observation per protocol and per clinical status pt being followed by hospitalist falls precaution skin precautions hob with po intake adjust meds per status discharge planning in progress Estimated Date of D/C: 02/11/18 - Smoking Cessation Smoking Cessation Initiated: No Reason for not providing: pt deferred
[2018-02-09] MEDS: Timolol 0.25% Ophth SOLN OU SCH ×2 (08:42→17:22)
--- NOTE | 2018-02-09 13:28 | PCM.PYCHPN ---
Psychiatric Progress Note - Psychiatric Progress Note Patient seen today, length of contact: Patient evaluated, chart reviewed, case discussed w/ team Patient Chief Complaint: "I'm okay." Problems Identified/Issues Discussed: Patient continues to be disoriented and confused due to chronic dementia. She denies depression/anxiety/psychotic symptoms. She has been in good behavioral control. Family meeting scheduled w/ the SW today to discuss disposition and provide psychoeducation. Medication Change: No Medical Record Reviewed: Yes Consults ordered or reviewed: Medicine consult Mental Status Examination - Cognitive Function Orientation: Person Memory: Impaired Attention: Poor Concentration: Poor Association: Loose Fund of Knowledge: Poor Decription of patient's judgement and insights: Poor I/J due to chronic dementia - Mood Mood: Neutral - Affect Affect: Broad - Speech Speech: Appropriate - Formal Thought Process Formal Thought Process: Loosening of associations Psychotic Thoughts and Behaviors: Denies AH/VH/paranoia/delusions - Suicidal Ideation Suicidal Ideation: No - Homicidal Ideation Homicidal Ideation: No Goal/Treatment Plan - Goal/Treatment Plan Need for Continued Stay: Severe functional impairment Progress Toward Problem(s) and Goals/Treatment Plan: Dementia with behavioral disturbances -Continue Namenda and Seroquel -Medicine and Psychology consults -Family meeting w/ SW schedule for today -Disposition-possible discharge tomorrow if patient continues to improve clinically Estimated Date of D/C: 02/10/18
[2018-02-10] MEDS: Timolol 0.25% Ophth SOLN OU SCH ×2 (08:38→16:51)
--- NOTE | 2018-02-10 09:23 | PCM.PYCHPN ---
Psychiatric Progress Note - Psychiatric Progress Note Patient seen today, length of contact: Patient evaluated, chart reviewed, case discussed w/ team Patient Chief Complaint: "I'm okay." Problems Identified/Issues Discussed: Patient is calm, cooperative and in good behavioral control. Patient continues to be disoriented and confused due to chronic dementia. She denies depression/ anxiety/psychotic symptoms. SW met with family yesterday to arrange a safe discharge back to home tomorrow. Family will supervise patient, dispense medications and hire at home health care for the patient. Medication Change: No Medical Record Reviewed: Yes Consults ordered or reviewed: Medicine consult, Physical Therapy Mental Status Examination - Cognitive Function Orientation: Person Memory: Impaired Attention: Poor Concentration: Poor Association: Loose Fund of Knowledge: Poor Decription of patient's judgement and insights: Poor I/J due to chronic dementia - Mood Mood: Neutral - Affect Affect: Broad - Speech Speech: Appropriate - Formal Thought Process Formal Thought Process: Loosening of associations Psychotic Thoughts and Behaviors: Denies AH/VH/paranoia/delusions - Suicidal Ideation Suicidal Ideation: No - Homicidal Ideation Homicidal Ideation: No Goal/Treatment Plan - Goal/Treatment Plan Need for Continued Stay: Severe functional impairment Progress Toward Problem(s) and Goals/Treatment Plan: Dementia with behavioral disturbances -Continue Arabella and Inez -Medicine, Psychology and Physical Therapy consults -Psychoeducation provided to the family -Disposition-discharge to home tomorrow under the care of her family Estimated Date of D/C: 02/11/18
[2018-02-11] MEDS: Timolol 0.25% Ophth SOLN OU SCH ×2 (08:20→16:39)
--- NOTE | 2018-02-11 08:28 | PCM.PYCHPN ---
Psychiatric Progress Note - Psychiatric Progress Note Patient seen today, length of contact: Patient evaluated, chart reviewed, case discussed w/ team Patient Chief Complaint: "I'm okay." Problems Identified/Issues Discussed: Patient is calm, cooperative and in good behavioral control. Patient continues to be disoriented and confused due to chronic dementia. She denies depression/ anxiety/psychotic symptoms. Patient to be discharged tomorrow under the care of her family. As per PATIENCE note: Clinic Coordinator (PATIENCE) received t/c form pt's [place] phan ([phone] ) and informed that she has contacted pt's [employer] and life insurance policy and is in the process of completing the required paperwork and providing agencies with the required paperwork and POA. Pt's emilie reported at the moment she does not have the adequate funds to pay for [facility] and private pay home health aide. Niece reported that she is in the process of "getting my sister and brother on broad." Clinic Coordinator advised pt's emilie that clinical information will be presented to pt's health insurance and if deemed clinically approved 1 extra day will be approved; however, there are no guarantee. Emilie verbalized understanding and reported that one additional day would help her get everything together to ensure pt's safety at home. Medication Change: No Medical Record Reviewed: Yes Consults ordered or reviewed: Medicine consult, Physical Therapy Mental Status Examination - Cognitive Function Orientation: Person Memory: Impaired Attention: Poor Concentration: Poor Association: Loose Fund of Knowledge: Poor Decription of patient's judgement and insights: Poor I/J due to chronic dementia - Mood Mood: Neutral - Affect Affect: Broad - Speech Speech: Appropriate - Formal Thought Process Formal Thought Process: Loosening of associations Psychotic Thoughts and Behaviors: Denies AH/VH/paranoia/delusions - Suicidal Ideation Suicidal Ideation: No - Homicidal Ideation Homicidal Ideation: No Goal/Treatment Plan - Goal/Treatment Plan Need for Continued Stay: Severe functional impairment Progress Toward Problem(s) and Goals/Treatment Plan: Dementia with behavioral disturbances -Continue Namenda and Seroquel -Medicine, Psychology and Physical Therapy consults -Psychoeducation provided to the family -Disposition-discharge to home tomorrow under the care of her family Estimated Date of D/C: 02/12/18 - Smoking Cessation Smoking Cessation Initiated: No Reason for not providing: Not indicated
--- NOTE | 2018-02-12 08:53 | PCM.PYCHDC ---
Mental Status Examination - Mental Status Examination Orientation: Person Memory: Impaired Mood: Neutral Affect: Broad Speech: Appropriate Attention: Poor Concentration: Poor Association: Loose Fund of Knowledge: Poor Formal Thought Process: Loosening of associations Description of patient's judgement and insight: Poor I/J due to chronic dementia Psychotic Thoughts and Behaviors: Denies AH/VH/paranoia/delusions Suicidal Ideation: No Current Homicidal Ideation?: No Discharge Summary - Discharge Note Reason for Hospitalization: HPI: 87 yo female w/ h/o dementia, brought into [facility] ED by niece, due to worsening bizarre behavior and paranoia. Patient is unable to give any history. She is A + O x 1. She denies mood disturbance, AH/VH/SI/HI. She has poor insight into the severity of her dementia. She reports good appetite and sleep. She is not able to care for herself due to her chronic dementia. PMHx: HTN, Glaucoma SHx: Lives w/ her niece, no drugs/etoh/drugs, unemployed. ALL: NKDA Consultations:: List each consultation separately and include: 1. Reason for request. 2. Findings. 3. Follow-up Consultations: Medicine consult, Physical Therapy Summary of Hospital Course include:: 1. Description of specific treatment plan utilized for patients during their course of treatmen. 2. Summarize the time- course for resolution of acute symptoms and/or regressed behaviors. 3. Describe issues identified and worked on during hospitalization. 4. Describe medication utilized. 5. Describe medical problems identified and treated. 6. Reassessment of suicide risk Summary of Hospital Course: Patient was admitted to the geriatric psychiatry unit. Individual and group therapy were provided. Patient was stabilized on Namenda 10 mg PO BID and Seroquel 25 mg PO Q12. She continues to have chronic deficits due to dementia, but the patient is in better behavioral control. - Diagnosis (1) Dementia, unspecified, with behavioral disturbance Current Visit: Yes Status: Chronic - Final Diagnosis (DSM 5) Condition upon Discharge: STABLE DSM 5: Dementia with Behavioral Disturbance Disposition: HOME/ ROUTINE Follow-up Treatment Plan: Dementia with behavioral disturbances -Continue Namenda and Seroquel -Medicine, Psychology and Physical Therapy consults -Psychoeducation provided to the family -Disposition-discharge to home under the care of her family Prescriptions/Medication Reconciliation: Memantine [Namenda] 10 mg PO BID #60 tab QUEtiapine [Seroquel] 25 mg PO Q12 #60 tab - Smoking Cessation Smoking Cessation Medication prescribed: No Reason for not providing: Not indicated - Antipsychotic Medications Pt discharged on 2 or more routine antipsychotic medications: No
[2018-02-12] MEDS: Timolol 0.25% Ophth SOLN OU SCH (09:06)
[2018-02-12 15:58] VITALS: BP 134/56; PULSE 75; RESP 20; TEMP 96.8
== END 2018-02-12 16:15 | disposition home or self-care (01) | DRG 884 ==
LOC: H.ER 18:56 → H.ERHOLD 22:55 → H.STEP 02-06 01:49
PROVIDERS: ADMIT Psychiatry & Neurology Psychiatry; ATTEND Psychiatry & Neurology Psychiatry
PROC: GZ58ZZZ Individual Psychotherapy, Cognitive-Behavioral (ICD-10-PCS; principal; 2018-02-05)
DX: F03.91 Unspecified dementia, unspecified severity, with behavioral disturbance (principal); I10 Essential (primary) hypertension; M71.21 Synovial cyst of popliteal space [Baker], right knee; H40.9 Unspecified glaucoma; Z79.899 Other long term (current) drug therapy; Z90.710 Acquired absence of both cervix and uterus